=== PATIENT | female | born 1955 | race Caucasian/White ===

== ENCOUNTER 2018-03-04 08:49 | Outpatient (CLI) | payer MEDICARE, OTHER | END 2018-03-04 23:59 | disposition home or self-care (01) | LOC: RT 08:49 | PROVIDERS: ATTEND Family Medicine | DX: G47.34 Idiopathic sleep related nonobstructive alveolar hypoventilation (principal); R06.09 Other forms of dyspnea; F17.210 Nicotine dependence, cigarettes, uncomplicated; Z79.899 Other long term (current) drug therapy | CPT/HCPCS: 94010; 94727; 94729 ==